=== PATIENT | female | born 1960 | race Two or more races ===

== ENCOUNTER 2020-09-15 09:09 | Emergency (ER) | payer OTHER ==
[~2020-09-15] VITALS: Ht 162.6 cm; Wt 79.8 kg
[2020-09-15] MEDS ORDERED: COZAAR50 MG (09:32)
== END 2020-09-15 18:06 | disposition home or self-care (01) ==
LOC: ER 09:09
DX: A05.8 Other specified bacterial foodborne intoxications (principal); Z20.828 Contact with and (suspected) exposure to other viral communicable diseases

== ENCOUNTER 2021-02-21 11:29 | Emergency (ER) | payer OTHER ==
[~2021-02-21] VITALS: Ht 162.6 cm; Wt 77.1 kg
[~2021-02-21 11:29] MED LIST: COZAAR50 MG
[2021-02-21] MEDS ORDERED: DICLOFENAC SOD100 MG PO (17:14)
[2021-02-21] MEDS ORDERED: CYCLOBENZAPRINE10 MG PO (17:14)
== END 2021-02-21 17:41 | disposition home or self-care (01) ==
LOC: ER 11:29
DX: M62.838 Other muscle spasm (principal); M54.12 Radiculopathy, cervical region

== ENCOUNTER 2022-02-13 09:31 | Emergency (ER) | payer OTHER ==
[~2022-02-13] VITALS: Ht 162.6 cm; Wt 77.6 kg
[~2022-02-13 09:31] MED LIST changes: +CYCLOBENZAPRINE10 MG PO; +DICLOFENAC SOD100 MG PO
== END 2022-02-13 14:48 | disposition home or self-care (01) ==
LOC: ER 09:31
DX: J40 Bronchitis, not specified as acute or chronic (principal); B34.9 Viral infection, unspecified; H83.09 Labyrinthitis, unspecified ear

== ENCOUNTER 2022-02-18 10:22 | Emergency (ER) | payer OTHER ==
[~2022-02-18] VITALS: Ht 162.6 cm; Wt 79.4 kg
[2022-02-18] MEDS ORDERED: SYMBICORT 16010.2 GM IH (16:49)
== END 2022-02-18 17:13 ==
LOC: ER 10:22
DX: J45.909 Unspecified asthma, uncomplicated (principal); A49.3 Mycoplasma infection, unspecified site; M94.0 Chondrocostal junction syndrome [Tietze]; Z88.2 Allergy status to sulfonamides

== ENCOUNTER → 2022-06-20 | Emergency (ER) | payer OTHER ==
[~2022-06-20] VITALS: Ht 162.6 cm; Wt 78.0 kg
[~2022-06-20] MED LIST changes: +SYMBICORT 16010.2 GM IH
== END | disposition home or self-care (01) ==
LOC: ER 09:20
DX: I10 Essential (primary) hypertension (principal); R51.9 Headache, unspecified; Z88.2 Allergy status to sulfonamides

== ENCOUNTER 2022-09-15 10:27 | Outpatient (CLI) | payer OTHER ==
[~2022-09-15 10:27] MED LIST changes: +CIPRO500 MG PO; +LEVSIN/SL0.125 MG SL; +NORVASC5 MG PO
== END 2022-09-15 10:32 | disposition home or self-care (01) ==
LOC: LAB 10:27 → RAD 10:27
PROVIDERS: ATTEND Colon & Rectal Surgery
DX: K59.09 Other constipation (principal)

== ENCOUNTER 2024-05-24 09:57 | Emergency (ER) | payer OTHER ==
[~2024-05-24] VITALS: Ht 162.6 cm; Wt 68.0 kg
[2024-05-24 11:07] LABS: HEMATOCRIT 34.1 % (36.0-45.00); HEMOGLOBIN 11.5 g/dL (12.0-15.00); MEAN CELL VOLUME 89.3 fL (80.00-100.00); MEAN CORPUSCULAR HEMOGLOBIN 30.2 pg (27.00-32.0); MEAN CORPUSCULAR HGB CONC 33.8 g/dl (32.0-36.0); PLATELET COUNT 225 K/uL (150-450); RED BLOOD COUNT 3.82 M/uL (4.00-6.00); RED CELL DISTRIBUTION WIDTH 12.9 % (11.5-14.5)
[2024-05-24 11:44] LABS: CREATININE SERUM 1.16 mg/dL (0.55-1.02); GFR 47.18; POTASSIUM 3.72 mEq/L (3.5-5.1)
== END 2024-05-24 12:21 | disposition home or self-care (01) ==
LOC: ER 09:59
PROVIDERS: General Practice
DX: R42 Dizziness and giddiness (principal); I10 Essential (primary) hypertension; Z88.2 Allergy status to sulfonamides

== ENCOUNTER 2024-10-01 09:24 | Inpatient (IN) | payer OTHER ==
[~2024-10-01] VITALS: Ht 162.6 cm; Wt 68.0 kg
[2024-10-01] MEDS ORDERED: GENTAMICIN SULFATE 40 MG/ML VIAL ONE (10:09)
[2024-10-01] MEDS ORDERED: 0.9 % SODIUM CHLORIDE 1,000 ML IV ONE (10:15)
[2024-10-01] MEDS ORDERED: GENTAMICIN SULFATE 40 MG/ML VIAL IV ONE (10:15)
[2024-10-01] MEDS ORDERED: KETOROLAC TROMETHAMINE 15 MG VIAL IV ONE (10:30)
[2024-10-01 11:20] LABS: HEMATOCRIT 35.8 % (36.0-45.00); HEMOGLOBIN 11.7 g/dL (12.0-15.00); MEAN CELL VOLUME 91.7 fL (80.00-100.00); MEAN CORPUSCULAR HEMOGLOBIN 30.1 pg (27.00-32.0); MEAN CORPUSCULAR HGB CONC 32.8 g/dl (32.0-36.0); PLATELET COUNT 224 K/uL (150-450); RED CELL DISTRIBUTION WIDTH 12.9 % (11.5-14.5)
[2024-10-01 11:35] LABS: INR 1.03; PARTIAL THROMBOPLASTIN TIME 26.9 SECONDS (22.0-34.0); PROTHROMBIN TIME 11.2 SECONDS (9.0-11.5)
[2024-10-01 11:44] LABS: CALCIUM 8.9 mg/dL (8.5-10.1); CREATININE SERUM 1.16 mg/dL (0.55-1.02); GFR 47.03; POTASSIUM 3.24 mEq/L (3.5-5.1)
[2024-10-01 11:48] LABS: PH,URINE 6.5 (5.0-8.0); URINE APPEARANCE Clear; URINE BILIRRUBIN Negative (NEGATIVE); URINE BLOOD Trace; URINE GLUCOSE Negative (NEGATIVE); URINE KETONE Negative (NEGATIVE); URINE LEUKOCYTE Trace; URINE NITRATE Negative; URINE PROTEIN Negative (NEGATIVE); URINE UROBILINOGEN 0.2 E.U./dl
[2024-10-01 11:49] LABS: URINE BACTERIA 3790.4 uL (0.0-1933); URINE EPITHELIAL CELLS 4.2 uL (0.0-38.8); URINE RBC 20.6 uL (0.0-20.8); URINE WBC 137.2 uL (0.0-23.2)
[2024-10-01 12:06] LABS: URINE CAST 0.14 uL (0.0-1.40)
[2024-10-01] MEDS ORDERED: MEROPENEM 500 MG/VIAL VIAL IV SCH (19:29)
[2024-10-01] MEDS ORDERED: ACETAMINOPHEN 325 MG TABLET PO PRN (19:30)
[2024-10-01] MEDS ORDERED: 0.9 % SODIUM CHLORIDE 1,000 ML IV SCH (19:45)
[2024-10-01 21:35] VITALS: BP 141/85; O2SAT 99
[2024-10-02] VITALS: BP 104/62; O2SAT 99
[2024-10-02] MEDS ORDERED: POTASSIUM CHLORIDE 10 MEQ CAPSULE PO STA (08:36)
[2024-10-02] MEDS ORDERED: LOSARTAN POTASSIUM 50 MG TABLET PO SCH (09:00)
[2024-10-02] MEDS ORDERED: FAMOTIDINE/PF 20 MG/2 ML VIAL IV SCH (09:00)
[2024-10-02] MEDS ORDERED: MEROPENEM 500 MG/VIAL VIAL IV SCH (09:00)
[2024-10-02 09:34] VITALS: BP 104/67; O2SAT 99
[2024-10-02 16:00] VITALS: BP 132/75; O2SAT 100
[2024-10-02] MEDS ORDERED: MEROPENEM 1,000 MG VIAL IV SCH (17:00)
[2024-10-03 00:57] VITALS: BP 104/59; O2SAT 98
[2024-10-03 07:55] VITALS: BP 1127/59; O2SAT 100
[2024-10-03 08:00] LABS: CALCIUM 8.5 mg/dL (8.5-10.1); CREATININE SERUM 1.07 mg/dL (0.55-1.02); GFR 51.63; POTASSIUM 4.76 mEq/L (3.5-5.1)
[2024-10-03] MEDS ORDERED: GENTAMICIN SULFATE 2.5 MG/ML (Adulto) IV SCH (09:00)
[2024-10-03 11:29] LABS: ob NEGATIVE (NEGATIVE)
[2024-10-03 16:33] VITALS: BP 126/63; O2SAT 99
[2024-10-04] VITALS: BP 117/59; O2SAT 98
[2024-10-04 08:15] VITALS: BP 103/67; O2SAT 100
== END 2024-10-04 14:07 | disposition home or self-care (01) | DRG 690 ==
LOC: ER 09:26 → SURH 20:03
PROVIDERS: General Practice; ADMIT Internal Medicine; ATTEND Internal Medicine
DX: N39.0 Urinary tract infection, site not specified (principal); B96.20 Unspecified Escherichia coli [E. coli] as the cause of diseases classified elsewhere; I10 Essential (primary) hypertension

== ENCOUNTER 2024-11-29 10:33 | Emergency (ER) | payer OTHER ==
[~2024-11-29] VITALS: Ht 162.6 cm; Wt 70.3 kg
[2024-11-29] MEDS ORDERED: XOPENEX CO1.25 MG/0. (10:58)
[2024-11-29] MEDS ORDERED: SINGULAIR4 M1 (10:58)
[2024-11-29] MEDS ORDERED: ALEGRA (10:58)
[2024-11-29 12:56] LABS: HEMATOCRIT 35.2 % (36.0-45.00); HEMOGLOBIN 11.9 g/dL (12.0-15.00); MEAN CELL VOLUME 88.7 fL (80.00-100.00); MEAN CORPUSCULAR HEMOGLOBIN 30.1 pg (27.00-32.0); MEAN CORPUSCULAR HGB CONC 33.9 g/dl (32.0-36.0); PLATELET COUNT 231 K/uL (150-450); RED BLOOD COUNT 3.96 M/uL (4.00-6.00)
[2024-11-29 13:21] LABS: PH,URINE 5.5 (5.0-8.0); URINE APPEARANCE Clear; URINE BILIRRUBIN Negative (NEGATIVE); URINE BLOOD NHT; URINE COLOR Yellow; URINE GLUCOSE Negative (NEGATIVE); URINE KETONE Negative (NEGATIVE); URINE LEUKOCYTE Small; URINE NITRATE Negative; URINE PROTEIN Negative (NEGATIVE)
[2024-11-29 13:25] LABS: URINE BACTERIA 52.6 uL (0.0-1933); URINE EPITHELIAL CELLS 6.3 uL (0.0-38.8); URINE WBC 7.7 uL (0.0-23.2)
[2024-11-29 13:26] LABS: CALCIUM 8.8 mg/dL (8.5-10.1); CREATININE SERUM 0.99 mg/dL (0.55-1.02); GFR 56.47; POTASSIUM 4.02 mEq/L (3.5-5.1)
[2024-11-29 13:34] LABS: URINE CAST 0.14 uL (0.0-1.40)
[2024-11-29] MEDS ORDERED: KETOROLAC TROMETHAMINE 60 MG VIAL IM STA (14:04)
== END 2024-11-29 14:16 | disposition home or self-care (01) ==
LOC: ER 10:36
PROVIDERS: General Practice
DX: R30.0 Dysuria (principal); K59.00 Constipation, unspecified; Z88.2 Allergy status to sulfonamides; Z87.09 Personal history of other diseases of the respiratory system

== ENCOUNTER 2024-12-14 10:09 | Inpatient (IN) | payer OTHER ==
[~2024-12-14] VITALS: Ht 157.5 cm; Wt 68.0 kg
[~2024-12-14 10:09] MED LIST changes: +ALEGRA; +SINGULAIR4 M1; +XOPENEX CO1.25 MG/0.
--- NOTE | 2024-12-14 10:22 | NUR ---
PTE ALERTA Y ORIENTADA X3 VERBALIZA TENER CARRIE BACTERIA EN LA ORINA Y DOLOR EN LA VEGIGA SE LE SHERRON S/V Y SE UBICA EN SONIDO.
[2024-12-14] MEDS ORDERED: ERTAPENEM SODIUM 1,000 MG in 0.9 % SODIUM CHLORIDE 50 ML IV SCH (11:37)
[2024-12-14] MEDS ORDERED: FAMOTIDINE/PF 20 MG in 0.9 % SODIUM CHLORIDE 8 ML IV PUSH SCH (11:38)
[2024-12-14] MEDS ORDERED: 0.9 % SODIUM CHLORIDE 1,000 ML IV SCH (11:45)
[2024-12-14] MEDS ORDERED: ACETAMINOPHEN 500 MG GEL..CAP PO PRN (11:45)
[2024-12-14] MEDS ORDERED: MEROPENEM 500 MG in 0.9 % SODIUM CHLORIDE 50 ML IV SCH (12:02)
[2024-12-14] MEDS ORDERED: LOSARTAN POTASSIUM 50 MG TABLET PO SCH (12:03)
[2024-12-14] MEDS ORDERED: KETOROLAC TROMETHAMINE 30 MG VIAL IM PRN (12:15)
[2024-12-14] MEDS ORDERED: FAMOTIDINE/PF 20 MG/2 ML VIAL ONE (12:15)
[2024-12-14] MEDS ORDERED: KETOROLAC TROMETHAMINE 30 MG VIAL ONE (12:25)
[2024-12-14 12:27] LABS: HEMATOCRIT 35.2 % (36.0-45.00); HEMOGLOBIN 11.5 g/dL (12.0-15.00); MEAN CELL VOLUME 90.9 fL (80.00-100.00); MEAN CORPUSCULAR HEMOGLOBIN 29.6 pg (27.00-32.0); MEAN CORPUSCULAR HGB CONC 32.6 g/dl (32.0-36.0); PLATELET COUNT 234 K/uL (150-450); RED BLOOD COUNT 3.87 M/uL (4.00-6.00); RED CELL DISTRIBUTION WIDTH 12.8 % (11.5-14.5)
[2024-12-14 12:51] VITALS: BP 158/92; O2SAT 100
[2024-12-14 13:03] LABS: URINE APPEARANCE Clear; URINE BILIRRUBIN Negative (NEGATIVE); URINE BLOOD Trace; URINE COLOR Yellow; URINE GLUCOSE Negative (NEGATIVE); URINE KETONE Negative (NEGATIVE); URINE LEUKOCYTE Negative; URINE NITRATE Negative; URINE PROTEIN Negative (NEGATIVE); URINE UROBILINOGEN 0.2 E.U./dl
[2024-12-14 13:06] LABS: URINE BACTERIA 13.4 uL (0.0-1933); URINE RBC 9.2 uL (0.0-20.8)
[2024-12-14 13:08] LABS: INR 1.05; PARTIAL THROMBOPLASTIN TIME 26.8 SECONDS (22.0-34.0); PROTHROMBIN TIME 11.4 SECONDS (9.0-11.5)
[2024-12-14 13:11] LABS: URINE CAST 0.14 uL (0.0-1.40); URINE WBC 0.7 uL (0.0-23.2)
[2024-12-14 13:15] LABS: ALBUMIN 3.9 gm/dL (3.4-5.0); BILIRUBIN TOTAL 0.53 mg/dL (0.3-1.2); CREATININE SERUM 0.94 mg/dL (0.55-1.02); GFR 59.95; GLOBULINA 3.1 G/DL (2.4-3.5); POTASSIUM 3.98 mEq/L (3.5-5.1)
[2024-12-14 15:45] VITALS: BP 133/69; O2SAT 100
[2024-12-15 05:31] VITALS: BP 139/90; O2SAT 100
[2024-12-15] MEDS ORDERED: ENALAPRILAT DIHYDRATE 1.25 MG/ML VIAL IV PRN (07:15)
[2024-12-15 08:50] VITALS: BP 114/72; O2SAT 100
[2024-12-15 16:00] VITALS: BP 135/85; O2SAT 98
[2024-12-15] MEDS ORDERED: LACTOBACILLUS ACIDOPHILUS 1 CAP CAP PO SCH (17:00)
[2024-12-15] MEDS ORDERED: MEROPENEM 500 MG/VIAL VIAL IV ONE (23:05)
[2024-12-16 00:32] VITALS: BP 123/76; O2SAT 100
[2024-12-16 08:40] VITALS: BP 107/72; O2SAT 95
[2024-12-16 16:00] VITALS: BP 144/84; O2SAT 100
[2024-12-16] MEDS ORDERED: FAMOtidine 20 MG TABLET PO SCH (21:00)
[2024-12-17 00:40] VITALS: BP 109/68; O2SAT 99
[2024-12-17 08:00] VITALS: BP 123/81; O2SAT 97
[2024-12-17 16:29] VITALS: BP 114/74; O2SAT 98
[2024-12-18 00:28] VITALS: BP 120/71; O2SAT 97
[2024-12-18 09:07] VITALS: BP 127/73; O2SAT 95
[2024-12-18 16:00] VITALS: BP 143/83; O2SAT 98
[2024-12-19 00:46] VITALS: BP 99/64; O2SAT 98
[2024-12-19 08:00] VITALS: BP 119/70; O2SAT 98
[2024-12-19 11:10] LABS: HEMATOCRIT 34.6 % (36.0-45.00); HEMOGLOBIN 11.7 g/dL (12.0-15.00); MEAN CELL VOLUME 89.2 fL (80.00-100.00); MEAN CORPUSCULAR HEMOGLOBIN 30.3 pg (27.00-32.0); PLATELET COUNT 201 K/uL (150-450); RED BLOOD COUNT 3.87 M/uL (4.00-6.00); RED CELL DISTRIBUTION WIDTH 12.9 % (11.5-14.5)
[2024-12-19 12:10] LABS: ALBUMIN 3.5 gm/dL (3.4-5.0); BILIRUBIN TOTAL 0.34 mg/dL (0.3-1.2); CALCIUM 8.7 mg/dL (8.5-10.1); CREATININE SERUM 0.94 mg/dL (0.55-1.02); GFR 59.95; GLOBULINA 3.1 G/DL (2.4-3.5); POTASSIUM 4.12 mEq/L (3.5-5.1); TOTAL PROTEIN 6.6 gm/dL (6.4-8.2)
[2024-12-19 17:28] VITALS: BP 120/77; O2SAT 99
[2024-12-20 01:04] VITALS: BP 108/65; O2SAT 99
[2024-12-20 08:00] VITALS: BP 125/80; O2SAT 99
[2024-12-20 16:00] VITALS: BP 134/81; O2SAT 97
[2024-12-21 00:31] VITALS: BP 101/67; O2SAT 98
[2024-12-21 08:00] VITALS: BP 143/78; O2SAT 99
== END 2024-12-21 13:35 | disposition home or self-care (01) | DRG 690 ==
LOC: ER 10:12 → SEC-K 16:08 → MEDJ 19:58 → SEC-K 20:01 → O/R 20:41 → SEC-K 21:32 → MEDJ 12-15 00:10 → SEC-K 12-15 00:25 → SURH 12-15 00:43
PROVIDERS: General Practice; ADMIT Internal Medicine; ATTEND Internal Medicine
PROC: 8E0ZXY6 Isolation (ICD-10-PCS; principal; 2024-12-14)
DX: N39.0 Urinary tract infection, site not specified (principal); Z16.12 Extended spectrum beta lactamase (ESBL) resistance; I10 Essential (primary) hypertension; B96.20 Unspecified Escherichia coli [E. coli] as the cause of diseases classified elsewhere; Z88.2 Allergy status to sulfonamides

== ENCOUNTER 2025-06-04 09:30 | Emergency (ER) | payer OTHER ==
[~2025-06-04] VITALS: Ht 162.6 cm; Wt 78.9 kg
[2025-06-04] MEDS ORDERED: AZELASTINE137 MCG/0. (10:02)
[2025-06-04] MEDS ORDERED: FLONASE16 GM NS (10:02)
[2025-06-04] MEDS ORDERED: CLARITIN10 M1 (10:02)
[2025-06-04] MEDS ORDERED: BREZTRI AEROS10.7 GM (10:02)
[2025-06-04] MEDS ORDERED: METHENAMINE HIPP1 GM (10:04)
[2025-06-04] MEDS ORDERED: ACETAMINOPHEN 500 MG GEL..CAP PO ONE (10:15)
[2025-06-04] MEDS ORDERED: KETOROLAC TROMETHAMINE 30 MG VIAL IM ONE (10:15)
== END 2025-06-04 14:12 | disposition home or self-care (01) ==
LOC: ER 09:30
DX: S20.213A Contusion of bilateral front wall of thorax, initial encounter (principal); W18.39XA Other fall on same level, initial encounter; Y93.89 Activity, other specified; Y92.018 Other place in single-family (private) house as the place of occurrence of the external cause; Z88.2 Allergy status to sulfonamides; S90.122A Contusion of left lesser toe(s) without damage to nail, initial encounter

== ENCOUNTER 2025-08-19 10:44 | Emergency (ER) | payer OTHER ==
[~2025-08-19] VITALS: Ht 152.4 cm; Wt 77.6 kg
[~2025-08-19 10:44] MED LIST changes: +AZELASTINE137 MCG/0.; +BREZTRI AEROS10.7 GM; +CLARITIN10 M1; +FLONASE16 GM NS; +METHENAMINE HIPP1 GM
[2025-08-19] MEDS ORDERED: METHYLPREDNISOLONE SOD SUCC 125 MG VIAL IV ONE (12:15)
[2025-08-19] MEDS ORDERED: ACETAMINOPHEN 500 MG GEL..CAP PO ONE (12:15)
[2025-08-19 13:17] LABS: BASO % 0.9 % (0.1-1.2); EOS # 0.27 (0.04-0.54); EOS % 4.8 % (0.7-7.0); LYMPH # 1.45 (1.18-3.74); LYMPH % 25.8 % (19.3-53.1); MEAN PLATELET VOLUME 11.00 fl (9.4-12.4); MONO # 0.51 (0.24-0.82); MONO % 9.1 % (4.7-12.5); NEUT # 3.33 (1.56-6.13); NEUT % 59.2 % (34.0-71.1); RED CELL DISTRIBUTION WIDTH 12.0 % (11.6-14.4)
[2025-08-19 13:35] LABS: INR 1.04
[2025-08-19 13:49] LABS: ALT/SGPT 19.0 U/L (12-78); AST/SGOT 14.0 U/L (15-37); BILIRUBIN TOTAL 0.22 mg/dL (0.3-1.2); BUN CREA RATIO 15.0 (7.0-25.0); CREATININE SERUM 1.01 mg/dL (0.55-1.02); GFR 55.01; GLOBULINA 3.3 G/DL (2.4-3.5); GLUCOSE FASTING 84.0 mg/dL (65-100); OSMOLALITY SERUM 289.0 MOSM/KG (275-295)
[2025-08-19 14:02] LABS: COVID-19 AG NEGATIVE (NEGATIVE)
[2025-08-19] MEDS ORDERED: ZYRTEC10 M3 PO (14:31)
== END 2025-08-19 15:02 | disposition home or self-care (01) ==
LOC: ER 10:44
DX: J00 Acute nasopharyngitis [common cold] (principal); I10 Essential (primary) hypertension; R53.1 Weakness; R21 Rash and other nonspecific skin eruption; T78.40XA Allergy, unspecified, initial encounter; Z20.822 Contact with and (suspected) exposure to COVID-19; Z88.2 Allergy status to sulfonamides

== ENCOUNTER 2025-08-22 12:38 | Emergency (ER) | payer OTHER ==
[~2025-08-22] VITALS: Ht 162.6 cm; Wt 77.6 kg
[~2025-08-22 12:38] MED LIST changes: +ZYRTEC10 M3 PO
[2025-08-22 13:10] VITALS: BP 132/80; O2SAT 99
[2025-08-22] MEDS ORDERED: KETOROLAC TROMETHAMINE 60 MG VIAL IM ONE ×2 (14:15→16:04)
[2025-08-22] MEDS ORDERED: ACETAMINOPHEN 500 MG GEL..CAP PO ONE ×2 (14:15→16:04)
[2025-08-22] MEDS ORDERED: ORPHENADRINE CITRATE 30 MG/ML AMPUL IM ONE (14:15)
[2025-08-22] MEDS ORDERED: DEXAMETHASONE SODIUM PHOSPHATE 4 MG/ML VIAL IM ONE (14:15)
[2025-08-22] MEDS ORDERED: NORFLEX100MG PO (15:57)
[2025-08-22] MEDS ORDERED: PEPCID AC20 MG PO (15:57)
[2025-08-22] MEDS ORDERED: IBU600 MG PO (15:57)
[2025-08-22] MEDS ORDERED: ORPHENADRINE CITRATE 30 MG/ML AMPUL ONE (16:03)
[2025-08-22] MEDS ORDERED: DEXAMETHASONE SODIUM PHOSPHATE 4 MG/ML VIAL ONE (16:04)
== END 2025-08-22 17:11 | disposition home or self-care (01) ==
LOC: ER 12:39
DX: S39.82XA Other specified injuries of lower back, initial encounter (principal); W10.0XXA Fall (on)(from) escalator, initial encounter; Y93.89 Activity, other specified; Y92.512 Supermarket, store or market as the place of occurrence of the external cause; Z88.2 Allergy status to sulfonamides; S89.82XA Other specified injuries of left lower leg, initial encounter; S89.81XA Other specified injuries of right lower leg, initial encounter